=== PATIENT | male | born 1955 | race Hispanic/Latino ===

== ENCOUNTER 2017-12-29 07:32 | Emergency (ER) | payer MEDICARE ==
[2017-12-29 07:33] VITALS: BMI 21.3
[2017-12-29 07:43] VITALS: TEMP 98.1; O2SAT 98
[2017-12-29] MEDS ORDERED: Famotidine 20mg/50ml 20 MG/50 ML BAG IVPB STA (08:12)
[2017-12-29] MEDS ORDERED: Sodium Chloride 0.9% 1,000 ML IV STA (08:12)
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
[2017-12-29 08:46] LABS: BASO # 0.02 K/mm3 (0.0-2.0); BASO % 0.7 % (0.0-3.0); EOS # 0.1 (0.0-0.7); EOS % 2.7 % (1.5-5.0); GRAN # 1.59 (1.4-6.5); GRAN % 52.8 % (50.0-68.0); HEMOGLOBIN 10.8 g/dL (14.0-18.0); LYMPH # 1.1 (1.2-3.4); LYMPH % 36.5 % (22.0-35.0); MEAN CELL VOLUME 77.7 fl (80.0-105.0); MEAN CORPUSCULAR HEMOGLOBIN 25.7 pg (25.0-35.0); MEAN PLATELET VOLUME 9.1 fl (7.0-11.0); MONO # 0.2 (0.1-0.6); MONO % 7.3 % (1.0-6.0); RBC 4.21 10^6/uL (3.5-6.1)
[2017-12-29 08:49] VITALS: RESP 18
[2017-12-29 08:55] LABS: ALB/GLOB RATIO 1.4 (1.1-1.8); ALBUMIN 4.2 g/dL (3.0-4.8); ALT/SGPT 24 U/L (7-56); AST/SGOT 26 U/L (17-59); BLOOD UREA NITROGEN 13 mg/dL (7-21); CALCIUM 9.7 mg/dL (8.4-10.5); GFR AFRICAN-AMERICAN > 60; GFR NON-AFRICAN AMERICAN > 60; LIPASE 93 U/L (23-300)
[2017-12-29 08:56] LABS: PH,URINE 5.5 (4.7-8.0); URINE BILIRUBIN NEGATIVE (NEGATIVE); URINE BLOOD MODERATE (NEGATIVE); URINE GLUCOSE (UA) NEGATIVE (NEGATIVE); URINE LEUKOCYTE ESTERASE NEGATIVE Leu/uL (NEGATIVE); URINE PROTEIN NEGATIVE mg/dL (<30 mg/dL); URINE UROBILINOGEN 0.2 E.U./dL (<1 E.U./dL)
--- NOTE | 2017-12-29 09:00 | CT ---
PROCEDURE: CT Abdomen and Pelvis without intravenous contrast HISTORY: right flank pain COMPARISON: 02/12/2013 TECHNIQUE: Unenhanced study. Neither oral nor intravenous contrast administered. Radiation dose: Total exam DLP = Total exam DLP = 178.42 mGy-cm. This CT exam was performed using one or more of the following dose reduction techniques: Automated exposure control, adjustment of the mA and/or kV according to patient size, and/or use of iterative reconstruction technique. FINDINGS: LOWER THORAX: Unremarkable. LIVER: Unremarkable. No gross lesion or ductal dilatation. GALLBLADDER AND BILE DUCTS: Distended gallbladder. No gallbladder calculi identified. PANCREAS: Unremarkable. No gross lesion or ductal dilatation. SPLEEN: Unremarkable. ADRENALS: Unremarkable. No mass. KIDNEYS AND URETERS: Unremarkable. No hydronephrosis. No solid mass. VASCULATURE: Unremarkable. No aortic aneurysm. BOWEL: Constipation without fecal impaction or obstruction. APPENDIX: Unremarkable. Normal appendix. PERITONEUM: Unremarkable. No free fluid. No free air. LYMPH NODES: Unremarkable. No enlarged lymph nodes. BLADDER: Unremarkable. REPRODUCTIVE: Unremarkable. BONES: No acute fracture. OTHER FINDINGS: None. IMPRESSION: No significant or acute findings to account for/ related to the clinical presentation. No significant interval change compared to the prior examination(s).
[2017-12-29 09:02] LABS: URINE APPEARANCE CLEAR (CLEAR); URINE COLOR YELLOW (YELLOW)
[2017-12-29 09:17] LABS: URINE BACTERIA FEW (NEG); URINE EPITHELIAL CELLS 0 - 2 /hpf (0-5); URINE WBC 0 - 2 /hpf (0-6)
[2017-12-29] MEDS ORDERED: Alum-Mag Hydrox-Simethicone Susp (30 mL) PO STA (09:24)
[2017-12-29] MEDS ORDERED: Atrop/Hyosc/Scopal/PB Elixir (120 ml) PO STA (09:24)
[2017-12-29 10:15] VITALS: BP 121/78; PULSE 75
== END 2017-12-29 10:34 | disposition home or self-care (01) ==
LOC: ED 07:32
DX: G89.29 Other chronic pain (principal); R10.9 Unspecified abdominal pain; I10 Essential (primary) hypertension; E03.9 Hypothyroidism, unspecified; Z87.891 Personal history of nicotine dependence
CPT/HCPCS: 74176; 80053; 81001; 83690; 85025; 96374; 99284; J1885; J7040

== ENCOUNTER 2018-01-26 06:07 | Emergency (ER) | payer MEDICARE ==
[2018-01-26 06:22] VITALS: BMI 19.3
[2018-01-26 06:34] VITALS: RESP 18; TEMP 97.9; O2SAT 99
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
[2018-01-26] MEDS ORDERED: Morphine 2 mg/2 mL syringe IVP STA (06:40)
[2018-01-26] MEDS ORDERED: Sodium Chloride 0.9% 1,000 ML IV SCH (06:45)
[2018-01-26] MEDS ORDERED: PrednisoLONE 15 mg/5 ml Oral Syrup (240 ml) PO STA (07:05)
[2018-01-26 07:28] LABS: BASO # 0.02 K/mm3 (0.0-2.0); BASO % 0.6 % (0.0-3.0); EOS # 0.1 (0.0-0.7); EOS % 2.8 % (1.5-5.0); GRAN # 2.12 (1.4-6.5); HEMOGLOBIN 12.1 g/dL (14.0-18.0); LYMPH # 1.2 (1.2-3.4); LYMPH % 32.6 % (22.0-35.0); MEAN CELL VOLUME 78.7 fl (80.0-105.0); MEAN CORPUSCULAR HEMOGLOBIN 25.8 pg (25.0-35.0); MEAN CORPUSCULAR HGB CONC 32.8 g/dl (31.0-37.0); MEAN PLATELET VOLUME 9.7 fl (7.0-11.0); MONO # 0.2 (0.1-0.6); RBC 4.69 10^6/uL (3.5-6.1); RED CELL DISTRIBUTION WIDTH 14.7 % (11.5-14.5); WHITE BLOOD COUNT 3.6 10^3/ul (4.5-11.0)
[2018-01-26 07:40] LABS: ALB/GLOB RATIO 1.4 (1.1-1.8); ALBUMIN 4.9 g/dL (3.0-4.8); ALT/SGPT 26 U/L (7-56); AMYLASE 127 U/L (35-125); AST/SGOT 23 U/L (17-59); BLOOD UREA NITROGEN 23 mg/dL (7-21); CALCIUM 9.9 mg/dL (8.4-10.5); GFR AFRICAN-AMERICAN > 60; GFR NON-AFRICAN AMERICAN > 60; LIPASE 128 U/L (23-300)
[2018-01-26 07:41] LABS: INR 1.01 (0.93-1.08); PARTIAL THROMBOPLASTIN TIME 26.4 Seconds (25.1-36.5); PROTHROMBIN TIME 11.6 SECONDS (9.4-12.5)
[2018-01-26 07:50] LABS: TROPONIN I < 0.01 ng/mL
[2018-01-26 07:55] LABS: PH,URINE 5.5 (4.7-8.0); URINE BILIRUBIN SMALL (NEGATIVE); URINE BLOOD MODERATE (NEGATIVE); URINE GLUCOSE (UA) NEGATIVE (NEGATIVE); URINE LEUKOCYTE ESTERASE NEGATIVE Leu/uL (NEGATIVE); URINE PROTEIN 30 mg/dL (<30 mg/dL); URINE UROBILINOGEN 0.2 E.U./dL (<1 E.U./dL)
[2018-01-26 07:57] LABS: URINE COLOR YELLOW (YELLOW)
[2018-01-26 07:58] LABS: URINE APPEARANCE SLIGHT-CLOUDY (CLEAR)
[2018-01-26 08:02] LABS: URINE WBC 0 - 2 /hpf (0-6)
[2018-01-26 08:03] LABS: URINE HYALINE CAST 0 - 2 /hpf
[2018-01-26] MEDS ORDERED: Atrop/Hyosc/Scopal/PB Elixir (120 ml) PO STA (08:20)
[2018-01-26] MEDS ORDERED: Alum-Mag Hydrox-Simethicone Susp (30 mL) PO STA (08:20)
[2018-01-26] MEDS ORDERED: Lidocaine 2% Viscous 100 ml PO STA (08:20)
[2018-01-26 09:04] VITALS: BP 120/64; PULSE 64
--- NOTE | 2018-01-26 22:44 | CARD ---
APPROVED REPORT EKG Measurement Heart [id number] <Conclusion> Normal sinus rhythm Normal ECG
--- NOTE | 2018-01-27 12:02 | ED PDOC ---
Physical Exam Vital Signs Reviewed: Yes Vital Signs Temp Pulse Resp BP Pulse Ox 01/26/18 08:08 64 18 120/64 99 01/26/18 06:33 97.9 F 91 H 18 107/70 99 Temperature: Afebrile Blood Pressure: Normal Pulse: Regular Respiratory Rate: Normal Appearance: Positive for: Well-Appearing, Non-Toxic, Comfortable Pain Distress: None Mental Status: Positive for: Alert and Oriented X 3 - Systems Exam Head: Present: Atraumatic, Normocephalic Pupils: Present: PERRL Extroacular Muscles: Present: EOMI Conjunctiva: Present: Normal Mouth: Present: Moist Mucous Membranes Neck: Present: Normal Range of Motion Respiratory/Chest: Present: Clear to Auscultation, Good Air Exchange. No: Respiratory Distress, Accessory Muscle Use Cardiovascular: Present: Regular Rate and Rhythm, Normal S1, S2. No: Murmurs Abdomen: Present: Tenderness (mild epigastric). No: Distention, Peritoneal Signs, Rebound, Guarding Back: Present: Normal Inspection Upper Extremity: Present: Normal Inspection. No: Cyanosis, Edema Lower Extremity: Present: Normal Inspection. No: Edema Neurological: Present: GCS=15, CN II-XII Intact, Speech Normal Skin: Present: Warm, Dry, Normal Color. No: Rashes Psychiatric: Present: Alert, Oriented x 3, Normal Insight, Normal Concentration Medical Decision Making ED Course and Treatment: 01/26/18 Patient was signed out to me by Dr. Tellez at 7am. On reevaluation, patient felt much better. His abdomen was soft, ND, NT. He was tolerating PO fluids. He was advised to take his medication as prescribed and to make sure he follows up with his PMD and his GI doctor Dr. Maya. He is welcome to return to the ED if symptoms worsen or any other concerns. - Lab Interpretations Lab Results: 01/26/18 06:55 01/26/18 06:55 Lab Results 01/26/18 07:30: Urine Color Yellow, Urine Appearance Slight-cloudy, Urine pH 5.5 , Ur Specific [place] >= 1.030, Urine Protein 30 H, Urine Glucose (UA) Negative , Urine Ketones >=80, Urine Blood Moderate H, Urine Nitrate Negative, Urine Bilirubin Small H, Urine Urobilinogen 0.2, Ur Leukocyte Esterase Negative, Urine RBC 2 - 5, Urine WBC 0 - 2, Ur Epithelial Cells None, Hyaline Casts 0 - 2 01/26/18 06:55: Lactic Acid 1.5 01/26/18 06:55: Sodium 143, Potassium 4.1, Chloride 100, Carbon Dioxide 27, Anion Gap 20, BUN 23 H, Creatinine 0.9, Est GFR ( Amer) > 60, Est GFR ( Non-Af Amer) > 60, Random Glucose 84, Calcium 9.9, Total Bilirubin 0.9, AST 23, ALT 26, Alkaline Phosphatase 54, Lactate Dehydrogenase 381, Total Creatine Kinase 65, Troponin I < 0.01, Total Protein 8.4 H, Albumin 4.9 H, Globulin 3.5, Albumin/Globulin Ratio 1.4, Amylase 127 H, Lipase 128 01/26/18 06:55: PT 11.6, INR 1.01, APTT 26.4 01/26/18 06:55: WBC 3.6 L, RBC 4.69, Hgb 12.1 L, Hct 36.9 L, MCV 78.7 L, MCH 25.8, MCHC 32.8, RDW 14.7 H, Plt Count 219, MPV 9.7, Gran % 59.0, Lymph % (Auto ) 32.6, [place] % (Auto) 5.0, Eos % (Auto) 2.8, Baso % (Auto) 0.6, Gran # 2.12, Lymph # (Auto) 1.2, [place] # (Auto) 0.2, Eos # (Auto) 0.1, Baso # (Auto) 0.02 - Medication Orders Current Medication Orders: Discontinued Medications Acetaminophen (Tylenol 325mg Tab) 650 mg PO STAT STA Stop: 01/26/18 09:18 Last Admin: 01/26/18 09:34 Dose: 650 mg Al Hydrox/Mg Hydrox/Simethicone (Maalox Plus 30 Ml) 30 ml PO STAT STA Stop: 01/26/18 08:21 Last Admin: 01/26/18 08:57 Dose: 30 ml Belladonna/Phenobarbital ( Elixir) 5 ml PO STAT STA Stop: 01/26/18 08:21 Last Admin: 01/26/18 08:56 Dose: 5 ml Sodium Chloride (Sodium Chloride 0.9%) 1,000 mls @ 80 mls/hr IV .[id number] [facility] Last Admin: 01/26/18 07:06 Dose: 80 mls/hr eMAR Start Stop Document 01/26/18 07:06 RG (Rec: 01/26/18 07:06 RG [id number]) Intravenous Solution Start Date 01/26/18 Start Time 07:06 Lidocaine HCl (Lidocaine 2% Viscous) 15 ml MM STAT STA Stop: 01/26/18 08:48 Last Admin: 01/26/18 08:56 Dose: 15 ml Ondansetron HCl (Zofran Inj) 4 mg IVP STAT STA Stop: 01/26/18 06:41 Last Admin: 01/26/18 07:06 Dose: 4 mg IVP Administration Document 01/26/18 07:06 ROBERTA (Rec: 01/26/18 07:06 RG [id number]) Charges for Administration # of IVP Administrations 1 Pantoprazole Sodium (Protonix Inj) 40 mg IVP STAT STA Stop: 01/26/18 07:28 Last Admin: 01/26/18 07:33 Dose: 40 mg IVP Administration Document 01/26/18 07:33 EWO (Rec: 01/26/18 07:33 EWO [id number]) Charges for Administration # of IVP Administrations 1 Disposition/Present on Arrival - Present on Arrival Any Indicators Present on Arrival: No History of DVT/PE: No History of Uncontrolled Diabetes: No Urinary Catheter: No History of Decub. Ulcer: No History Surgical Site Infection Following: None - Disposition Have Diagnosis and Disposition been Completed?: Yes Diagnosis: Abdominal pain Disposition: HOME/ ROUTINE Disposition Time: 09:40 Patient Plan: Discharge Condition: IMPROVED Discharge Instructions (ExitCare): Stomach Ache and Stomach Upset Additional Instructions: Mr Singh, thank you for letting us take care of you today. Your provider was Dr. Weber. You were treated for Abdominal Pain. The emergency medical care you received today was directed at your acute symptoms. If you were prescribed any medication, please fill it and take as directed. It may take several days for your symptoms to resolve. Return to the Emergency Department if your symptoms worsen, do not improve, or if you have any other problems. Please contact your doctor or call one of the physicians/clinics you have been referred to that are listed on the Patient Visit Information form that is included in your discharge packet. Bring any paperwork you were given at discharge with you along with any medications you are taking to your follow up visit. Our treatment cannot replace ongoing medical care by a primary care provider (PCP) outside of the emergency department. Thank you for allowing the [facility] team to be part of your care today. If you had an X-Ray or CT scan: A Radiologist will review the ED reading if any change in treatment is needed we will contact you. If you had a blood, urine, or wound culture: It will take several days for the results, if any change in treatment is needed we will contact you. If you had an STI test: It will take 48 hours for the results. Please call after 1 week if you have not heard back. Prescriptions: Aluminum Hydroxide/Magnesium H [Maalox 30 ml] 30 ml PO Q8 #1 bottle Omeprazole 20 mg PO DAILY #30 capsule. Ranitidine HCl [Zantac] 150 mg PO BID PRN #30 tablet PRN Reason: Pain, Mild (1-3) Referrals: Khoa Aguilar MD [Primary Care Provider] - Follow up with primary Forms: [employer] (Bermudian), WORK NOTE
== END 2018-01-26 09:40 | disposition home or self-care (01) ==
LOC: ED 06:07
DX: R10.9 Unspecified abdominal pain (principal); I10 Essential (primary) hypertension
CPT/HCPCS: 80053; 81001; 82150; 82550; 83605; 83615; 83690; 84484; 85025; 85610; 85730; 93005; 96374; 96375; 99284; C9113; J2405; J7040

== ENCOUNTER 2018-02-05 05:30 | Emergency (ER) | payer MEDICARE ==
[2018-02-05 05:30] VITALS: BMI 19.3
[2018-02-05 05:46] VITALS: TEMP 97.2
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
[2018-02-05 06:13] LABS: BASO # 0.01 K/mm3 (0.0-2.0); BASO % 0.3 % (0.0-3.0); EOS # 0.1 (0.0-0.7); EOS % 4.4 % (1.5-5.0); GRAN # 1.69 (1.4-6.5); GRAN % 56.7 % (50.0-68.0); HEMOGLOBIN 11.3 g/dL (14.0-18.0); LYMPH % 31.9 % (22.0-35.0); MEAN CELL VOLUME 79.5 fl (80.0-105.0); MEAN CORPUSCULAR HEMOGLOBIN 25.7 pg (25.0-35.0); MEAN CORPUSCULAR HGB CONC 32.4 g/dl (31.0-37.0); MEAN PLATELET VOLUME 9.4 fl (7.0-11.0); MONO # 0.2 (0.1-0.6); MONO % 6.7 % (1.0-6.0); RBC 4.39 10^6/uL (3.5-6.1); RED CELL DISTRIBUTION WIDTH 15.2 % (11.5-14.5)
[2018-02-05 06:19] LABS: URINE BILIRUBIN NEGATIVE (NEGATIVE); URINE BLOOD SMALL (NEGATIVE); URINE GLUCOSE (UA) NEGATIVE (NEGATIVE); URINE LEUKOCYTE ESTERASE NEGATIVE Leu/uL (NEGATIVE); URINE PROTEIN NEGATIVE mg/dL (<30 mg/dL); URINE UROBILINOGEN 0.2 E.U./dL (<1 E.U./dL)
[2018-02-05] MEDS ORDERED: Aspirin 325 mg EC Tablets PO STA (06:19)
[2018-02-05 06:30] LABS: TROPONIN I < 0.01 ng/mL
[2018-02-05 06:44] LABS: URINE APPEARANCE CLEAR (CLEAR); URINE COLOR YELLOW (YELLOW)
[2018-02-05 06:46] LABS: ALB/GLOB RATIO 1.5 (1.1-1.8); ALBUMIN 4.7 g/dL (3.0-4.8); ALT/SGPT 24 U/L (7-56); AST/SGOT 26 U/L (17-59); BLOOD UREA NITROGEN 14 mg/dL (7-21); CALCIUM 9.6 mg/dL (8.4-10.5); GFR AFRICAN-AMERICAN > 60; GFR NON-AFRICAN AMERICAN > 60
[2018-02-05 06:46] LABS: URINE EPITHELIAL CELLS 0 - 2 /hpf (0-5); URINE RBC 0 - 2 /hpf (0-2); URINE WBC 0 - 2 /hpf (0-6)
[2018-02-05 07:23] VITALS: BP 126/84; PULSE 79; RESP 19; O2SAT 99
--- NOTE | 2018-02-05 08:18 | RAD ---
HISTORY: Chest pain COMPARISON: 07/29/2014. FINDINGS: LUNGS: No active pulmonary disease. PLEURA: No significant pleural effusion identified, no pneumothorax apparent. CARDIOVASCULAR: No radiographic findings to suggest acute or significant cardiovascular disease. OSSEOUS STRUCTURES: No significant abnormalities. VISUALIZED UPPER ABDOMEN: Normal. OTHER FINDINGS: None. IMPRESSION: No active disease. No significant interval change compared to the prior examination(s).
--- NOTE | 2018-02-05 14:11 | CARD ---
APPROVED REPORT EKG Measurement Heart [id number] <Conclusion> Normal sinus rhythm Normal ECG
== END 2018-02-05 07:05 | disposition home or self-care (01) ==
LOC: ED 05:30
DX: R07.9 Chest pain, unspecified (principal); I20.9 Angina pectoris, unspecified; I10 Essential (primary) hypertension; J44.9 Chronic obstructive pulmonary disease, unspecified; Z87.891 Personal history of nicotine dependence

== ENCOUNTER 2018-02-26 05:40 | Emergency (ER) | payer MEDICARE ==
[2018-02-26 05:40] VITALS: BMI 19.3
[2018-02-26 05:48] VITALS: TEMP 97.5
[2018-02-26] MEDS ORDERED: Atrop/Hyosc/Scopal/PB Elixir (120 ml) PO STA (06:01)
[2018-02-26] MEDS ORDERED: Alum-Mag Hydrox-Simethicone Susp (30 mL) PO STA (06:01)
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
[2018-02-26 06:21] LABS: BASO # 0.02 K/mm3 (0.0-2.0); BASO % 0.6 % (0.0-3.0); EOS # 0.1 (0.0-0.7); EOS % 2.3 % (1.5-5.0); GRAN # 1.76 (1.4-6.5); GRAN % 51.2 % (50.0-68.0); HEMOGLOBIN 11.5 g/dL (14.0-18.0); LYMPH # 1.3 (1.2-3.4); LYMPH % 37.8 % (22.0-35.0); MEAN CELL VOLUME 78.1 fl (80.0-105.0); MEAN CORPUSCULAR HGB CONC 33.2 g/dl (31.0-37.0); MEAN PLATELET VOLUME 9.6 fl (7.0-11.0); MONO # 0.3 (0.1-0.6); MONO % 8.1 % (1.0-6.0); RBC 4.43 10^6/uL (3.5-6.1); RED CELL DISTRIBUTION WIDTH 14.8 % (11.5-14.5); WHITE BLOOD COUNT 3.4 10^3/ul (4.5-11.0)
[2018-02-26 06:33] LABS: ALB/GLOB RATIO 1.4 (1.1-1.8); ALBUMIN 4.8 g/dL (3.0-4.8); ALT/SGPT 28 U/L (7-56); AST/SGOT 32 U/L (17-59); BLOOD UREA NITROGEN 14 mg/dL (7-21); GFR AFRICAN-AMERICAN > 60; GFR NON-AFRICAN AMERICAN > 60; LIPASE 65 U/L (23-300)
[2018-02-26] MEDS ORDERED: Sodium Chloride 0.9% 1,000 ML IV STA (06:36)
[2018-02-26 06:54] VITALS: BP 112/69
[2018-02-26 07:08] VITALS: PULSE 72; RESP 18; O2SAT 100
== END 2018-02-26 07:07 | disposition home or self-care (01) ==
LOC: ED 05:40
DX: K86.1 Other chronic pancreatitis (principal); I10 Essential (primary) hypertension; Z87.891 Personal history of nicotine dependence
CPT/HCPCS: 80053; 83690; 85025; 96374; 99283; J2405; J7030

== ENCOUNTER 2018-08-03 10:55 | Emergency (ER) | payer MEDICARE ==
[2018-08-03 10:55] VITALS: BMI 19.3
[2018-08-03] MEDS ORDERED: Sodium Chloride 0.9% 1,000 ML IV STA (11:19)
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
[2018-08-03 11:48] LABS: URINE BILIRUBIN NEGATIVE (NEGATIVE); URINE BLOOD SMALL (NEGATIVE); URINE GLUCOSE (UA) NEGATIVE (NEGATIVE); URINE LEUKOCYTE ESTERASE NEGATIVE Leu/uL (NEGATIVE); URINE PROTEIN NEGATIVE mg/dL (<30 mg/dL); URINE UROBILINOGEN 0.2 E.U./dL (<1 E.U./dL)
[2018-08-03 11:49] LABS: URINE APPEARANCE CLEAR (CLEAR); URINE COLOR YELLOW (YELLOW)
[2018-08-03 11:56] LABS: BASO # 0.01 K/mm3 (0.0-2.0); BASO % 0.2 % (0.0-3.0); EOS # 0.1 (0.0-0.7); EOS % 1.3 % (1.5-5.0); GRAN # 2.92 (1.4-6.5); GRAN % 61.2 % (50.0-68.0); HEMOGLOBIN 10.3 g/dL (14.0-18.0); LYMPH # 1.5 (1.2-3.4); LYMPH % 31.2 % (22.0-35.0); MEAN CELL VOLUME 78.3 fl (80.0-105.0); MEAN CORPUSCULAR HEMOGLOBIN 25.8 pg (25.0-35.0); MEAN CORPUSCULAR HGB CONC 32.9 g/dl (31.0-37.0); MONO # 0.3 (0.1-0.6); MONO % 6.1 % (1.0-6.0); RED CELL DISTRIBUTION WIDTH 15.5 % (11.5-14.5); WHITE BLOOD COUNT 4.8 10^3/uL (4.5-11.0)
[2018-08-03 12:10] LABS: ALB/GLOB RATIO 1.5 (1.1-1.8); ALBUMIN 4.2 g/dL (3.0-4.8); ALT/SGPT 37 U/L (7-56); AST/SGOT 22 U/L (17-59); BLOOD UREA NITROGEN 10 mg/dL (7-21); CALCIUM 9.2 mg/dL (8.4-10.5); GFR NON-AFRICAN AMERICAN > 60; LIPASE 131 U/L (23-300)
[2018-08-03 12:21] LABS: INR 0.97; PARTIAL THROMBOPLASTIN TIME 29.3 Seconds (25.1-36.5); PROTHROMBIN TIME 11.1 SECONDS (9.4-12.5)
[2018-08-03 12:24] LABS: URINE BACTERIA NEG (NEG); URINE EPITHELIAL CELLS 0 - 2 /hpf (0-5); URINE RBC 0 - 2 /hpf (0-2); URINE WBC 0 - 2 /hpf (0-6)
--- NOTE | 2018-08-03 12:51 | CT ---
Date of service: 08/03/2018 PROCEDURE: CT Abdomen and Pelvis without intravenous contrast HISTORY: epigastric abominal pain COMPARISON: 12/29/2017 TECHNIQUE: Without contrast.. Contrast dose: Radiation dose: Total exam DLP = 197.86 mGy-cm. This CT exam was performed using one or more of the following dose reduction techniques: Automated exposure control, adjustment of the mA and/or kV according to patient size, and/or use of iterative reconstruction technique. FINDINGS: LOWER THORAX: Unremarkable. LIVER: Unremarkable. No gross lesion or ductal dilatation. GALLBLADDER AND BILE DUCTS: Unremarkable. PANCREAS: Unremarkable. No gross lesion or ductal dilatation. SPLEEN: Unremarkable. ADRENALS: Unremarkable. No mass. KIDNEYS AND URETERS: Unremarkable. No hydronephrosis. No solid mass. VASCULATURE: Unremarkable. No aortic aneurysm. No aortic atherosclerotic calcification or mural plaque present. BOWEL: Unremarkable. No obstruction. No gross mural thickening. APPENDIX: Unremarkable. Normal appendix. PERITONEUM: Unremarkable. No free fluid. No free air. LYMPH NODES: Unremarkable. No enlarged lymph nodes. BLADDER: Unremarkable. REPRODUCTIVE: Unremarkable. BONES: No acute fracture. OTHER FINDINGS: None. IMPRESSION: No acute intra-abdominal findings
--- NOTE | 2018-08-03 12:52 | RAD ---
Date of service: 08/03/2018 PROCEDURE: CHEST RADIOGRAPH, 1 VIEW HISTORY: abdominal pain COMPARISON: 02/05/2018 FINDINGS: LUNGS: Clear. PLEURA: No pneumothorax or pleural fluid seen. CARDIOVASCULAR: Normal. OSSEOUS STRUCTURES: No significant abnormalities. VISUALIZED UPPER ABDOMEN: Normal. OTHER FINDINGS: None. IMPRESSION: No active disease.
[2018-08-03 13:50] VITALS: RESP 19; O2SAT 99
[2018-08-03 14:06] VITALS: BP 125/72; PULSE 85; TEMP 97.3
--- NOTE | 2018-08-03 16:13 | CARD ---
APPROVED REPORT Date of service: 08/03/2018 EKG Measurement Heart [id number] <Conclusion> Normal sinus rhythm Moderate voltage criteria for LVH, may be normal variant Borderline ECG
== END 2018-08-03 14:03 | disposition home or self-care (01) ==
LOC: ED 10:55
DX: R10.9 Unspecified abdominal pain (principal); I10 Essential (primary) hypertension; J44.9 Chronic obstructive pulmonary disease, unspecified; Z86.73 Personal history of transient ischemic attack (TIA), and cerebral infarction without residual deficits; Z87.891 Personal history of nicotine dependence
CPT/HCPCS: 71045; 74176; 80053; 81001; 83690; 83735; 85025; 85610; 85730; 93005; 96361; 96374; 96375; 99284; J1885; J2765; J7030

== ENCOUNTER 2019-01-20 12:33 | Observation (INO) | payer MEDICARE ==
[2019-01-20 12:33] VITALS: BMI 19.3
[2019-01-20] MEDS ORDERED: Sodium Chloride 0.9% 500 ML IV STA ×2 (13:19→16:43)
[2019-01-20] MEDS ORDERED: Morphine 4 mg/ml ISec IVP STA ×2 (13:19→16:43)
[2019-01-20 14:21] LABS: BASO # 0.02 K/mm3 (0.0-2.0); BASO % 0.4 % (0.0-3.0); EOS # 0.1 (0.0-0.7); EOS % 1.2 % (1.5-5.0); HEMOGLOBIN 11.2 g/dL (14.0-18.0); MEAN CELL VOLUME 80.5 fl (80.0-105.0); MEAN CORPUSCULAR HGB CONC 32.3 g/dl (31.0-37.0); MEAN PLATELET VOLUME 9.1 fl (7.0-11.0); MONO # 0.3 (0.1-0.6); RBC 4.31 10^6/uL (3.5-6.1); RED CELL DISTRIBUTION WIDTH 14.7 % (11.5-14.5); WHITE BLOOD COUNT 5.2 10^3/uL (4.5-11.0)
--- NOTE | 2019-01-20 14:21 | CT ---
Date of service: 01/20/2019 PROCEDURE: CT Abdomen and Pelvis without intravenous contrast HISTORY: right sided abd pain COMPARISON: Noncontrast abdomen pelvis CT 08/03/2018. TECHNIQUE: Helical CT of the abdomen and pelvis was performed without oral or intravenous contrast as per referring physician request. Coronal and sagittal reformats were generated. Radiation dose: Total exam DLP = 216.73 mGy-cm. This CT exam was performed using one or more of the following dose reduction techniques: Automated exposure control, adjustment of the mA and/or kV according to patient size, and/or use of iterative reconstruction technique. FINDINGS: LOWER THORAX: Mild scattered emphysematous changes are seen at the bilateral lung bases once again. No definite mass identified bilaterally. LIVER: Unremarkable. No gross lesion or ductal dilatation. GALLBLADDER AND BILE DUCTS: [id number] distended but stable in appearance. No radiodense cholelithiasis or pericholecystic fluid collection appreciable. PANCREAS: Unremarkable. No gross lesion or ductal dilatation. SPLEEN: Unremarkable. ADRENALS: Unremarkable. No mass. KIDNEYS AND URETERS: No radiodense urolithiasis, perinephric fluid collection or obstructive uropathy is appreciate bilaterally. The bilateral ureters appear normal caliber overall. No suspicious renal contour changes to suggest underlying mass. The lack of intravenous contrast limits evaluation of the renal parenchyma bilaterally. VASCULATURE: Mildly atherosclerotic nonaneurysmal abdominal aorta appreciated. BOWEL: No definite bowel obstruction appreciated. Prominent fecal loading is seen at the right hemicolon otherwise mild to moderate in overall volume. The stomach is collapsed and once again is poorly evaluated due to that as well as lack of oral contrast administration. No suspicious small bowel findings. APPENDIX: Unremarkable. Normal appendix. PERITONEUM: Unremarkable. No free fluid. No free air. LYMPH NODES: Unremarkable. No enlarged lymph nodes. BLADDER: Unremarkable. REPRODUCTIVE: Unremarkable. BONES: Advanced degenerative disease L5-S1 with minimal grade 1 spondylolisthesis identified with L5 slightly posterior to S1 on a degenerative basis. No fracture identified throughout. OTHER FINDINGS: None. IMPRESSION: 1. No radiodense urolithiasis, perinephric fluid collection or obstructive uropathy is appreciate bilaterally. The bilateral ureters appear normal caliber overall. No suspicious renal contour changes to suggest underlying mass. The lack of intravenous contrast limits evaluation of the renal parenchyma bilaterally. 2. Prominent fecal loading is seen throughout the right hemicolon in particular and is [id number]-la-[id number] otherwise at mid and distal segments. No ascites, free air or abscess within the peritoneal space. 3. Ednx-lw-exameqal distended gallbladder which is otherwise unremarkable appearing. 4. Incidental, stable grade 1 spondylolisthesis L5-S1.
[2019-01-20 14:32] LABS: ALB/GLOB RATIO 1.5 (1.1-1.8); ALBUMIN 4.4 g/dL (3.0-4.8); ALT/SGPT 24 U/L (7-56); AMYLASE 99 U/L (35-125); AST/SGOT 24 U/L (17-59); BLOOD UREA NITROGEN 17 mg/dL (7-21); CALCIUM 9.1 mg/dL (8.4-10.5); GFR NON-AFRICAN AMERICAN > 60; LIPASE 63 U/L (23-300)
--- NOTE | 2019-01-20 14:37 | RAD ---
Date of service: 01/20/2019 HISTORY: abd pain, right sided COMPARISON: 08/03/2018 TECHNIQUE: 1 view obtained. FINDINGS: LUNGS: No active pulmonary disease. PLEURA: No significant pleural effusion identified, no pneumothorax apparent. CARDIOVASCULAR: No aortic atherosclerotic calcification present. Normal cardiac size. No pulmonary vascular congestion. OSSEOUS STRUCTURES: No significant abnormalities. VISUALIZED UPPER ABDOMEN: Normal. OTHER FINDINGS: None. IMPRESSION: No active disease.
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
[2019-01-20 17:39] LABS: URINE BILIRUBIN NEGATIVE (NEGATIVE); URINE BLOOD TRACE-LYSED (NEGATIVE); URINE GLUCOSE (UA) NEGATIVE (NEGATIVE); URINE LEUKOCYTE ESTERASE NEGATIVE Leu/uL (NEGATIVE); URINE PROTEIN NEGATIVE mg/dL (<30 mg/dL); URINE UROBILINOGEN 0.2 E.U./dL (<1 E.U./dL)
[2019-01-20 17:41] LABS: URINE APPEARANCE CLEAR (CLEAR); URINE COLOR LIGHT YELLOW (YELLOW)
[2019-01-20 17:45] LABS: URINE RBC 0 - 2 /hpf (0-2)
--- NOTE | 2019-01-20 18:18 | CARD ---
APPROVED REPORT Date of service: 01/20/2019 EKG Measurement Heart [id number] <Conclusion> Sinus bradycardia Otherwise normal ECG
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
[2019-01-20] MEDS: Sodium Chloride 0.9% 1,000 ML IV SCH (22:16)
[2019-01-20] MEDS: Oxycodone/Acetaminophen 5/325 mg Tab PO PRN (23:37)
[2019-01-20] MEDS: POLYETHYLENE GLYCOL 3350 17 GM/Dose PACKET PO SCH (23:40)
[2019-01-21] MEDS: Oxycodone/Acetaminophen 5/325 mg Tab PO PRN ×3 (04:58→22:09)
[2019-01-21] MEDS: Tolterodine 2 mg ER Cap PO SCH (10:16)
[2019-01-21] MEDS: POLYETHYLENE GLYCOL 3350 17 GM/Dose PACKET PO SCH ×2 (10:17→17:24)
--- NOTE | 2019-01-21 11:12 | CP.PCM.PN ---
Subjective - Date & Time of Evaluation Date of Evaluation: 01/21/19 Time of Evaluation: 11:11 - Subjective Subjective: General surgery progress note for Dr. Talbot Pt seen and examined at bedside. Pt is resting comfortably. Reports chronic difficulty initiating urinary stream. Endorses intermittent, sharp, right sided abdominal pain (since 2011) that radiates through to the right flank, which is much improved since admission. Denies fevers, chills, chest pain, sob, abdominal pain, n/v/d, hematuria. Objective - Vital Signs/Intake and Output Vital Signs (last 24 hours): Temp Pulse Resp BP Pulse Ox 97.7 F 59 L 19 133/86 95 01/21/19 06:00 01/21/19 06:00 01/21/19 06:00 01/21/19 06:00 01/21/19 06:00 Intake and Output: 01/21/19 01/21/19 06:59 18:59 Intake Total 600 Output Total 900 Balance -300 - Medications Medications: Current Medications Acetaminophen (Tylenol 325mg Tab) 650 mg PO Q6H PRN PRN Reason: Pain, Mild (1-3) Aspirin (Ecotrin) 81 mg PO DAILY [facility] Last Admin: 01/21/19 10:16 Dose: 81 mg Atorvastatin Calcium (Lipitor) 10 mg PO DIN [facility] Last Admin: 01/20/19 23:39 Dose: 10 mg Famotidine (Pepcid) 20 mg IVP DAILY [facility] Last Admin: 01/21/19 10:17 Dose: 20 mg Sodium Chloride (Sodium Chloride 0.9%) 1,000 mls @ 60 mls/hr IV .[id number] [facility] Last Admin: 01/20/19 22:16 Dose: 60 mls/hr Levetiracetam (Keppra) 500 mg PO BID [facility] Last Admin: 01/21/19 10:16 Dose: 500 mg Oxycodone/Acetaminophen (Percocet 5/325 Mg Tab) 1 tab PO Q6H PRN PRN Reason: Pain, severe (8-10) Stop: 01/23/19 21:16 Last Admin: 01/21/19 04:58 Dose: 1 tab Polyethylene Glycol (Miralax) 17 gm PO DAILY [facility] Last Admin: 01/21/19 10:17 Dose: 17 gm Tolterodine Tartrate (Detrol La) 2 mg PO DAILY [facility] Last Admin: 01/21/19 10:16 Dose: 2 mg Tramadol HCl (Ultram) 50 mg PO Q8H PRN PRN Reason: Pain, severe (8-10) - Labs Labs: 01/20/19 14:08 01/20/19 14:08 - Constitutional Appears: Non-toxic, No Acute Distress - Head Exam Head Exam: ATRAUMATIC Additional comments: (+) well healed right parietal scar from craniotomy - Eye Exam Eye Exam: EOMI - ENT Exam ENT Exam: Mucous Membranes Moist - Respiratory Exam Respiratory Exam: Clear to Ausculation Bilateral, NORMAL BREATHING PATTERN. absent: Accessory Muscle Use, Decreased Breath Sounds, Rales, Rhonchi, Wheezes, Respiratory Distress, Stridor - Cardiovascular Exam Cardiovascular Exam: REGULAR RHYTHM, +S1, +S2. absent: Tachycardia - GI/Abdominal Exam GI & Abdominal Exam: Soft, Normal Bowel Sounds. absent: Distended, Firm, Guarding, Rigid, Tenderness, Diminished Bowel Sounds, Rebound - Extremities Exam Extremities Exam: Normal Inspection. absent: Calf Tenderness, Pedal Edema, Tenderness - Back Exam Back Exam: NORMAL INSPECTION. absent: CVA tenderness (L), CVA tenderness (R) - Neurological Exam Neurological Exam: Alert, Awake - Psychiatric Exam Psychiatric exam: Normal Affect, Normal Mood - Skin Skin Exam: Dry, Normal Color, Warm Assessment and Plan - Assessment and Plan (Free Text) Assessment: This is a 63 year old male with PMH of sphincter of oddi dysfunction, pancreatitis, TIA, anemia, consulted for recurring right upper quadrant abdomina l pain; abdominal pain likely 2/2 sphincter of oddi dysfunction. Plan: CTAP without contrast shows prominent fecal loading throughout right hemicolon in particular and is mild=to-moderate othwerwise at mid and distal segments. No ascites, free air or abscess. Continue Miralax daily Continue high fiber diet F/u MRCP Pain control and antiemetics as needed No surgical intervention indicated at this time. Further management as per medical team, GI. Further recommendations as per Dr. Antione Walsh PGY1 Pager# [phone]
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
--- NOTE | 2019-01-21 13:33 | CP.PCM.PCO ---
Physician Communication Note - Physician Communication Note Physician Communication Note: MRCP pending, GI and surgery consulted
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
[2019-01-21] MEDS: Sodium Chloride 0.9% 1,000 ML IV SCH (17:24)
[2019-01-21] MEDS ORDERED: POLYETHYLENE GLYCOL 3350 17 GM/Dose PACKET PO ONE (18:00)
[2019-01-21] MEDS ORDERED: Gadodiamide 287 MG/ML VIAL (15ML) IV ONE (21:01)
[2019-01-21 22:55] VITALS: O2SAT 99
[2019-01-22] MEDS: Oxycodone/Acetaminophen 5/325 mg Tab PO PRN (03:30)
[2019-01-22 07:50] LABS: BASO # 0.02 K/mm3 (0.0-2.0); BASO % 0.5 % (0.0-3.0); EOS # 0.2 (0.0-0.7); HEMOGLOBIN 11.7 g/dL (14.0-18.0); LYMPH # 1.5 (1.2-3.4); LYMPH % 40.9 % (22.0-35.0); MEAN CELL VOLUME 81.8 fl (80.0-105.0); MEAN CORPUSCULAR HEMOGLOBIN 25.7 pg (25.0-35.0); MEAN CORPUSCULAR HGB CONC 31.5 g/dl (31.0-37.0); MEAN PLATELET VOLUME 9.3 fl (7.0-11.0); MONO # 0.3 (0.1-0.6); MONO % 6.7 % (1.0-6.0); RBC 4.55 10^6/uL (3.5-6.1); RED CELL DISTRIBUTION WIDTH 15.1 % (11.5-14.5); WHITE BLOOD COUNT 3.7 10^3/uL (4.5-11.0)
--- NOTE | 2019-01-22 07:56 | PN ---
DATE: 01/22/2019 SUBJECTIVE: He is comfortable in bed, in no acute distress, complaining of mild upper abdominal pain. An MRCP done yesterday, report awaited. Evaluated by Dr. Varela, evaluated by Surgery, Dr. Talbot. No nausea. No vomiting. Appetite is good. Overall intake is good. Tolerating p.o. REVIEW OF SYSTEMS: As per HPI. Rest of 12-point review of systems reviewed negative. PHYSICAL EXAMINATION: GENERAL: Comfortable in bed, no acute distress. VITAL SIGNS: Temperature 98.7, heart rate 80 per minute, respiratory rate 18 per minute, blood pressure 120/70. HEENT: No pallor. NECK: No lymphadenopathy. CHEST: Air entry present and equal bilaterally. No added sound. CARDIOPULMONARY: S1 and S2 normal. No murmur. No gallop. ABDOMEN: Soft and nontender. No hepatosplenomegaly. No rebound tenderness. No tenderness. EXTREMITIES: No edema. CENTRAL NERVOUS SYSTEM: Alert and oriented x3. No focal sensory or motor deficit. MEDICATIONS: Tylenol 650 every 6 hours p.r.n., aspirin 81 mg daily, Lipitor 10 mg daily, Pepcid 20 mg IV daily, Keppra 500 mg p.o. b.i.d., Percocet p.r.n. for pain, MiraLax b.i.d., IV fluid at 60 mL an hour, Detrol LA 2 mg daily, Ultram 50 mg p.o. daily. ASSESSMENT: 1. Right upper quadrant pain, history of sphincter of Oddi dysfunction. 2. History of seizure disorder. 3. 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 PLAN: MRCP done yesterday, report awaited. Evaluated by Dr. Varela, awaiting for the plan from GI team. Evaluated by Dr. Talbot. No indication of surgery. Now, he has mildly distended gallbladder. Pain control with current medications. We are awaiting GI team input and we will plan discharge accordingly. Madie Bull MD
[2019-01-22 08:08] LABS: ALB/GLOB RATIO 1.4 (1.1-1.8); ALBUMIN 4.1 g/dL (3.0-4.8); ALT/SGPT 23 U/L (7-56); AST/SGOT 21 U/L (17-59); BLOOD UREA NITROGEN 13 mg/dL (7-21); CALCIUM 8.9 mg/dL (8.4-10.5); GFR NON-AFRICAN AMERICAN > 60
--- NOTE | 2019-01-22 08:16 | CP.PCM.PN ---
Subjective - Date & Time of Evaluation Date of Evaluation: 01/22/19 Time of Evaluation: 08:13 - Subjective Subjective: PGY1 General surgery progress note for Dr. Talbot Pt seen and examined at bedside. Pt is resting comfortably. Continue to endorses intermittent, sharp, right sided abdominal pain (since 2011) that radiates to the right flank, but it is well controlled with pain meds. Denies fevers, chills, chest pain, sob, abdominal pain, n/v/d, hematuria. Pt has not had a BM yet, encouraged to walk around to facilitate bowel movements. Objective - Vital Signs/Intake and Output Vital Signs (last 24 hours): Temp Pulse Resp BP Pulse Ox 98 F 55 L 16 108/66 99 01/21/19 22:54 01/21/19 22:54 01/21/19 22:54 01/21/19 22:54 01/21/19 22:54 Intake and Output: 01/22/19 01/22/19 06:59 18:59 Intake Total 1600 Output Total 3100 Balance -1500 - Medications Medications: Current Medications Acetaminophen (Tylenol 325mg Tab) 650 mg PO Q6H PRN PRN Reason: Pain, Mild (1-3) Aspirin (Ecotrin) 81 mg PO DAILY [facility] Last Admin: 01/21/19 10:16 Dose: 81 mg Atorvastatin Calcium (Lipitor) 10 mg PO DIN [facility] Last Admin: 01/21/19 17:24 Dose: 10 mg Famotidine (Pepcid) 20 mg IVP DAILY [facility] Last Admin: 01/21/19 10:17 Dose: 20 mg Sodium Chloride (Sodium Chloride 0.9%) 1,000 mls @ 60 mls/hr IV .[id number] [facility] Last Admin: 01/21/19 17:24 Dose: 60 mls/hr Levetiracetam (Keppra) 500 mg PO BID [facility] Last Admin: 01/21/19 17:24 Dose: 500 mg Oxycodone/Acetaminophen (Percocet 5/325 Mg Tab) 1 tab PO Q6H PRN PRN Reason: Pain, severe (8-10) Stop: 01/23/19 21:16 Last Admin: 01/22/19 03:30 Dose: 1 tab Polyethylene Glycol (Miralax) 17 gm PO BID [facility] Last Admin: 04/24/19 17:24 Dose: 17 gm Tolterodine Tartrate (Detrol La) 2 mg PO DAILY [facility] Last Admin: 01/21/19 10:16 Dose: 2 mg Tramadol HCl (Ultram) 50 mg PO Q8H PRN PRN Reason: Pain, severe (8-10) - Labs Labs: 01/22/19 07:15 01/22/19 07:15 - Additional Findings Additional findings: - Constitutional Appears: Non-toxic, No Acute Distress - Head Exam Head Exam: ATRAUMATIC Additional comments: (+) well healed right parietal scar from craniotomy - Eye Exam Eye Exam: EOMI - ENT Exam ENT Exam: Mucous Membranes Moist - Respiratory Exam Respiratory Exam: Clear to Ausculation Bilateral, NORMAL BREATHING PATTERN. absent: Accessory Muscle Use, Decreased Breath Sounds, Rales, Rhonchi, Wheezes, Respiratory Distress, Stridor - Cardiovascular Exam Cardiovascular Exam: REGULAR RHYTHM, +S1, +S2. absent: Tachycardia - GI/Abdominal Exam GI & Abdominal Exam: Soft, Normal Bowel Sounds. absent: Distended, Firm, Guarding, Rigid, Tenderness, Diminished Bowel Sounds, Rebound - Extremities Exam Extremities Exam: Normal Inspection. absent: Calf Tenderness, Pedal Edema, Tenderness - Back Exam Back Exam: NORMAL INSPECTION. absent: CVA tenderness (L), CVA tenderness (R) - Neurological Exam Neurological Exam: Alert, Awake - Psychiatric Exam Psychiatric exam: Normal Affect, Normal Mood - Skin Skin Exam: Dry, Normal Color, Warm Assessment and Plan - Assessment and Plan (Free Text) Assessment: This is a 63 year old male with PMH of sphincter of oddi dysfunction, pancreatitis, TIA, anemia, consulted for recurring right upper quadrant abdominal pain; abdominal pain likely 2/2 sphincter of oddi dysfunction. Plan: CTAP without contrast shows prominent fecal loading throughout right hemicolon in particular and is [id number] othwerwise at mid and distal segments. No ascites, free air or abscess. Continue Miralax daily, high fiber diet. Monitor for bowel function. F/u MRCP report, MRI of abdomen Pain control and antiemetics as needed No surgical intervention indicated at this time. Further management as per medical team, GI. Case discussed with Dr. Talbot Will follow peripherally Giles Walsh PGY1 Pager# [phone]
[2019-01-22 08:29] VITALS: BP 115/50; PULSE 58; RESP 18; TEMP 97.7
[2019-01-22] MEDS: Tolterodine 2 mg ER Cap PO SCH (09:54)
[2019-01-22] MEDS: POLYETHYLENE GLYCOL 3350 17 GM/Dose PACKET PO SCH (10:00)
--- NOTE | 2019-01-22 11:21 | MRI ---
Date of service: 01/21/2019 PROCEDURE: MRI Abdomen with and without contrast with MRCP HISTORY: Right upper quadrant pain COMPARISON: None available. TECHNIQUE: Multisequence, multiplanar MR images of the abdomen with and without gadolinium contrast enhancement. 18 cc of Omniscan FINDINGS: LIVER: Unremarkable. GALLBLADDER: Unremarkable. The common duct is normal in caliber. There are no stones visualized. The gallbladder is normal SPLEEN: Unremarkable. PANCREAS: Unremarkable. ADRENALS: Unremarkable. KIDNEYS: Unremarkable. AORTA: No aneurysm. ASCITES: None. PERITONEUM: Unremarkable. LYMPH NODES: Unremarkable. OTHER FINDINGS: The stomach is distended and filled with fluid. IMPRESSION: Negative study. No evidence of biliary obstruction
== END 2019-01-22 15:02 | disposition home or self-care (01) ==
LOC: ED 12:33 → ERH 15:49 → 3RSO 17:40
PROVIDERS: ADMIT Internal Medicine Medical Oncology; ATTEND Internal Medicine Medical Oncology
DX: R10.11 Right upper quadrant pain (principal); I10 Essential (primary) hypertension; J44.9 Chronic obstructive pulmonary disease, unspecified; E78.00 Pure hypercholesterolemia, unspecified; G40.909 Epilepsy, unspecified, not intractable, without status epilepticus; N40.0 Benign prostatic hyperplasia without lower urinary tract symptoms; D50.9 Iron deficiency anemia, unspecified; M43.17 Spondylolisthesis, lumbosacral region; K59.03 Drug induced constipation; T40.605A Adverse effect of unspecified narcotics, initial encounter; Z86.73 Personal history of transient ischemic attack (TIA), and cerebral infarction without residual deficits; Z79.82 Long term (current) use of aspirin; Z86.011 Personal history of benign neoplasm of the brain; Z86.11 Personal history of tuberculosis
CPT/HCPCS: 36415; 71045; 74176; 74183; 80053; 81001; 82150; 83690; 83735; 84100; 85025; 93005; 96360; 96374; 99284; A9579; G0378; J2212; J2270; J7030; J7040